=== PATIENT | male | born 1980 | race Caucasian/White ===

== ENCOUNTER 2021-12-21 16:05 | Emergency (ER) | payer OTHER ==
[2021-12-21 16:27] VITALS: RESP 20
[2021-12-21] MEDS ORDERED: NICOTINE 21MG/24HR PATCH TRANSDERM STA (16:58)
[2021-12-21 17:00] LABS: Amphetamine Screen,Urine Not Detected (NotDetected); Barbiturate Screen,Urine Not Detected (NotDetected); Benzodiazepines Screen,Urine Not Detected (NotDetected); Cocaine Screen,Urine Not Detected (NotDetected); Methadone Screen, Urine Not Detected (NotDetected); Opiate Screen,Urine Not Detected (NotDetected); Oxycodone Screen, Urine Not Detected (NotDetected); Phencyclidine Screen,Urine Not Detected (NotDetected); Tricyclic Antidepressant,Urine Not Detected (NotDetected); Urn Cannabinoid Scrn Not Detected (NotDetected)
--- NOTE | 2021-12-21 20:14 | ED ---
Psych HPI - General Chief Complaint: Psychiatric Symptoms Stated Complaint: Mental health Time Seen by Provider: 12/21/21 16:42 Source: patient Mode of arrival: EMS - History of Present Illness Initial Comments: 41-year-old male presents to the emergency department for depression. States that he got in an argument with his girlfriend. They comments to his cousin that he was hopeless and tired of living. Because of this EMS was called. He denies suicidal ideations or attempts. Does have a history of depression however does not take any medications or go to therapy. She did have a previous suicide attempt over 13 years ago where he tried to hang himself. He does admit to drinking alcohol today. Drinks daily. Denies drug use. No other alleviating, precipitating or modifying factors - Related Data Home Medications Medication Instructions Recorded Confirmed No Known Home Medications 12/21/21 12/21/21 Allergies Allergy/AdvReac Type Severity Reaction Status Date / Time aspirin Allergy Unknown Verified 12/21/21 17:47 Childhood Review of Systems ROS Statement: Those systems with pertinent positive or pertinent negative responses have been documented in the HPI. ROS Other: All systems not noted in ROS Statement are negative. Past Medical History History of Any Multi-Drug Resistant Organisms: None Reported Past Psychological History: Depression Smoking Status: Current every day smoker Past Alcohol Use History: Daily Past Drug Use History: None Reported General Exam Limitations: no limitations Course Vital Signs 12/21/21 12/21/21 16:20 20:34 Temperature 97.9 F 98.1 F Pulse Rate 98 102 H Respiratory 20 20 Rate Blood Pressure 158/89 138/84 O2 Sat by Pulse 99 99 Oximetry Medical Decision Making - Medical Decision Making Upon arrival patient is placed into room 14. History and physical exam was performed. Patient does have an alcohol level of 0.133. He does wait 3 hours until he is sober. Evaluated by EPS. They do feel that he is stable for discharge home as he has no suicidal ideations. Recommended counseling and outpatient follow-up. Patient will be discharged home and asked to return for any new or worsening symptoms per patient discharged home in stable condition - Lab Data Lab Results 12/21/21 Range/Units 16:32 Urine Opiates Screen Not Detected (NotDetected) Ur Oxycodone Screen Not Detected (NotDetected) Urine Methadone Screen Not Detected (NotDetected) Ur Propoxyphene Screen Not Detected (NotDetected) Ur Barbiturates Screen Not Detected (NotDetected) U Tricyclic Antidepress Not Detected (NotDetected) Ur Phencyclidine Scrn Not Detected (NotDetected) Ur Amphetamines Screen Not Detected (NotDetected) U Methamphetamines Scrn Not Detected (NotDetected) U Benzodiazepines Scrn Not Detected (NotDetected) Urine Cocaine Screen Not Detected (NotDetected) U Marijuana (THC) Screen Not Detected (NotDetected) Disposition Clinical Impression: Depression Disposition: HOME SELF-CARE Condition: Stable Instructions (If sedation given, give patient instructions): Depression (ED) Additional Instructions: Please follow up with your PCP in 2-4 days. Please return should you have any recurrence of your symptoms Is patient prescribed a controlled substance at d/c from ED?: No Referrals: None,Stated [Primary Care Provider] - 1-2 days Time of Disposition: 20:13
[2021-12-21 23:25] VITALS: BP 138/84; PULSE 102; TEMP 98.1
== END 2021-12-21 20:35 | disposition home or self-care (01) ==
LOC: EC 16:05
DX: F32.A Depression, unspecified (principal); F17.200 Nicotine dependence, unspecified, uncomplicated
CPT/HCPCS: 82075; 80306; 99284; S4990